=== PATIENT | female | born 1965 | race Caucasian/White ===

== ENCOUNTER 2016-05-31 22:55 | Observation (INO) | payer OTHER ==
[~2016-05-31] VITALS: Ht 167.6 cm; Wt 80.3 kg
[2016-05-31 23:22] LABS: BASO % 0.3 % (0.1-1.2); EOS # 0.3 10_X3_uL (0.0-0.4); EOS % 2.2 % (0.7-5.8); GRAN # 8.4 10_X3_uL (1.6-6.1); GRAN % 65.4 % (34.0-71.1); HEMATOCRIT 39.8 % (34-45); HEMOGLOBIN 13.3 g/dL (11.2-15.7); LYMPH # 2.7 10_X3_uL (1.2-3.7); LYMPH % 21.3 % (19.3-51.7); MEAN CORPUSCULAR HEMOGLOBIN 31.7 pg (27.0-33.0); MEAN CORPUSCULAR HGB CONC 33.4 g/dL (32.0-36.0); MEAN CORPUSCULAR VOLUME 94.8 fL (79-95); MEAN PLATELET VOLUME 10.7 fl (7.5-11.5); MONO # 1.4 10_X3_uL (0.2-0.9); MONO % 10.8 % (4.7-12.5); PLATELET COUNT 302 x10_3/uL (182-369); RED CELL DISTRIBUTION WIDTH 14.5 % (11.7-14.4); WHITE BLOOD COUNT 12.8 x10_3/uL (4.0-10.0)
[2016-05-31 23:38] LABS: ALBUMIN 3.6 gm/dL (3.4-5.0); ALKALINE PHOSPHATASE 61 U/L (50-136); ALT/SGPT 8 U/L (3.5-33.9); AST/SGOT 9 U/L (7.04-26.96); BLOOD UREA NITROGEN 10 mg/dL (7-18); CALCIUM 8.4 mg/dL (8.7-10.7); CARBON DIOXIDE 22 mmol/L (21-32); CREATINE KINASE 54 U/L (21-215); CREATININE 0.7 mg/dL (0.6-1.3); GLUCOSE,RANDOM 102 mg/dL (70-99); POTASSIUM 3.4 mmol/L (3.5-5.1); SODIUM 139 mmol/L (136-145); TOTAL PROTEIN 6.7 gm/dL (6.4-8.2)
[2016-05-31 23:42] LABS: BILIRUBIN,TOTAL < 0.15 mg/dL (0.0-1.0)
[2016-06-01 01:16] LABS: PARTIAL THROMBOPLASTIN TIME 25.8 SECONDS (21.3-29.3); PROTHROMBIN TIME (PATIENT) 10.1 SECONDS (9.9-11.1)
[2016-06-01 05:35] LABS: BASO % 0.4 % (0.1-1.2); EOS # 0.3 10_X3_uL (0.0-0.4); EOS % 2.7 % (0.7-5.8); GRAN # 6.1 10_X3_uL (1.6-6.1); GRAN % 59.5 % (34.0-71.1); HEMOGLOBIN 12.5 g/dL (11.2-15.7); LYMPH # 2.7 10_X3_uL (1.2-3.7); LYMPH % 26.6 % (19.3-51.7); MEAN CORPUSCULAR HEMOGLOBIN 31.4 pg (27.0-33.0); MEAN CORPUSCULAR HGB CONC 32.9 g/dL (32.0-36.0); MEAN CORPUSCULAR VOLUME 95.5 fL (79-95); MEAN PLATELET VOLUME 10.7 fl (7.5-11.5); MONO # 1.1 10_X3_uL (0.2-0.9); MONO % 10.8 % (4.7-12.5); PLATELET COUNT 283 x10_3/uL (182-369); RED BLOOD COUNT 3.98 x10_6/uL (3.9-5.2); RED CELL DISTRIBUTION WIDTH 14.6 % (11.7-14.4); WHITE BLOOD COUNT 10.3 x10_3/uL (4.0-10.0)
[2016-06-01 05:48] LABS: CKMB < 1.0 ng/ml (0.0-5.0); TROP-I < 0.30 NG/ML (0.00-0.30)
[2016-06-01 11:40] LABS: CKMB < 1.0 ng/ml (0.0-5.0); TROP-I < 0.30 NG/ML (0.00-0.30)
[2016-06-01 18:01] LABS: CKMB < 1.0 ng/ml (0.0-5.0); TROP-I < 0.30 NG/ML (0.00-0.30)
[2016-06-02 07:44] LABS: HEMATOCRIT 40.6 % (34-45); HEMOGLOBIN 13.1 g/dL (11.2-15.7); MEAN CORPUSCULAR HEMOGLOBIN 30.9 pg (27.0-33.0); MEAN CORPUSCULAR HGB CONC 32.3 g/dL (32.0-36.0); MEAN CORPUSCULAR VOLUME 95.8 fL (79-95); MEAN PLATELET VOLUME 11.2 fl (7.5-11.5); RED BLOOD COUNT 4.24 x10_6/uL (3.9-5.2); RED CELL DISTRIBUTION WIDTH 14.5 % (11.7-14.4); WHITE BLOOD COUNT 10.2 x10_3/uL (4.0-10.0)
[2016-06-02 07:47] LABS: BLOOD UREA NITROGEN 9 mg/dL (7-18); CALCIUM 8.4 mg/dL (8.7-10.7); CARBON DIOXIDE 23 mmol/L (21-32); CREATININE 0.6 mg/dL (0.6-1.3); GLUCOSE,RANDOM 84 mg/dL (70-99); MAGNESIUM 2.1 mg/dL (1.8-2.4); POTASSIUM 3.2 mmol/L (3.5-5.1); SODIUM 138 mmol/L (136-145)
== END 2016-06-02 11:36 | disposition home or self-care (01) ==
LOC: ER 22:55 → MS 06-01 00:07
PROVIDERS: Emergency Medicine; ADMIT Family Medicine
DX: I20.0 Unstable angina (principal); I25.2 Old myocardial infarction; I25.10 Atherosclerotic heart disease of native coronary artery without angina pectoris; E78.5 Hyperlipidemia, unspecified; Z95.5 Presence of coronary angioplasty implant and graft; Z90.710 Acquired absence of both cervix and uterus; F17.210 Nicotine dependence, cigarettes, uncomplicated; I10 Essential (primary) hypertension; E87.6 Hypokalemia; Z79.899 Other long term (current) drug therapy; Z79.02 Long term (current) use of antithrombotics/antiplatelets; Z79.82 Long term (current) use of aspirin
CPT/HCPCS: 36415; 71010; 80048; 80053; 80061; 82550; 82553; 83735; 85025; 85610; 85730; 93005; 93041; 96360; 96361; 96372; 99070; 99284; 99285-25; G0378